=== PATIENT | female | born 1965 | race Hispanic/Latino ===

== ENCOUNTER 2020-04-10 19:10 | Emergency (ER) | payer OTHER ==
[~2020-04-10 19:10] MED LIST: Iopamidol-370 76% 500 ML 1 ML ONE
[2020-04-10] MEDS ORDERED: Fluorescein Opthalmic Strip ONE (19:41)
[2020-04-10 20:47] LABS: #Basophils 0.1 thou/uL (0.0-0.2); #Eosinphils 0.1 thou/uL (0.0-0.7); #Monocytes 0.5 thou/uL (0.11-0.59); #Neutrophils 2.1 thou/uL (1.40-6.50); %Basophils 1.7 % (0.0-1.0); %Eosinophils 2.9 % (0.0-10.0); %Lymphocytes 41.7 % (21.0-51.0); %Monocytes 10.7 % (0.0-10.0); Hemoglobin 13.9 g/dL (12.0-16.0); Mean Corpuscular HGB CONC 34.8 g/dL (32.0-36.0); Mean Corpuscular Hemoglobin 32.6 pg (27.0-31.0); Mean Corpuscular Volume 93.7 fL (78.0-98.0); Mean Platelet Volume 10.3 fL (7.4-10.4); Platelet Count 144 thou/uL (130-400); RBC Distribution Width 12.1 % (11.5-14.5); Red Blood Cell (RBC) Count 4.27 mill/uL (4.20-5.40); White Blood Cell (WBC) Count 4.9 thou/uL (4.8-10.8)
[2020-04-10 20:59] LABS: Anion Gap 10 mmol/L (10-20); BUN (Urea Nitrogen) 14 mg/dL (9.8-20.1); Calc. Creatinine Clearance 0 mL/min (70-130); Calcium 9.2 mg/dL (7.8-10.44); Carbon Dioxide 26 mmol/L (22-29); Chloride 107 mmol/L (98-107); Estimated GFR-MDRD Greater than 90; Glucose 97 mg/dL (70-105); Potassium 4.4 mmol/L (3.5-5.1); Sodium 139 mmol/L (136-145)
--- NOTE | 2020-04-10 21:28 | CT ---
CT orbits with contrast: 04/10/2020 HISTORY: 55-year-old female with history of prior traumatic brain injury years ago presents sudden onset right thigh pain. COMPARISON: No prior CT of orbits. There is a CT of the whole brain of 08/24/2018. FINDINGS: There are regions of encephalomalacia and gliosis in the right temporal lobe, partially imaged, which was present on prior CT brain of 08/24/2018. 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 This was apparently present on the previous CT. The M1 segments of the bilateral middle cerebral arteries, and the A2 segment of the left anterior cerebral artery, are normal in caliber. A1 segment of the right anterior cerebral artery is absent. T he right A2 segment is supplied via anterior communicating artery. The bilateral optic nerves appear to be diffusely symmetrically mildly dilated. This could be due to fluid in the optic nerve sheaths. The patient reportedly has no visual disturbance. Bilateral globes are normal. Extraocular muscles are bilaterally at the upper limits of normal in thickness, es pecially left. No intraorbital hematoma, mass, or edema. Old fractured defect at left orbital floor continuing into left inferior orbital rim, without significant herniation of intraorbital contents in to the left maxillary sinus. The maxillary, sphenoid, ethmoid, and frontal sinuses, are clear. No acute fracture. No destructive osseous lesion. [place] tonsils are bilaterally symmetrically enlarge d. No significant dilation of superior of ophthalmic veins. No asymmetry in the enhancement of cavernous sinuses or carotid siphons. Clivus is intact. Sella turcica appears normal. There is ventri culomegaly, unchanged. Deformities of the medial orbital kurtz bilaterally, especially the left. IMPRESSION: 1.) No acute intraorbital findings. 2) evidence of old fractures of left orbital floor, and left medial orbital wall. 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
[2020-04-11 14:56] LABS: SARS-CoV-2 MS2 Positive; SARS-CoV-2 N Gene Negative; SARS-CoV-2 S Gene Negative; SARS-CoV-2 orf1ab Negative
== END 2020-04-10 22:00 | disposition home or self-care (01) ==
LOC: ERS 19:10
DX: H57.11 Ocular pain, right eye (principal); Z20.828 Contact with and (suspected) exposure to other viral communicable diseases
CPT/HCPCS: 36415; 70481; 80048; 85025; 87635; Q9967; U0003